=== PATIENT | male | born 1985 | race African-American/Black ===

== ENCOUNTER 2022-04-22 08:34 | Emergency (ER) | payer OTHER ==
[2022-04-22 08:59] VITALS: BP 134/75; PULSE 73; RESP 18; TEMP 98.1; BMI 22.9
== END 2022-04-22 10:00 | disposition home or self-care (01) ==
LOC: JER 08:34 → JERFT 08:34
DX: S62.102A Fracture of unspecified carpal bone, left wrist, initial encounter for closed fracture (principal)
CPT/HCPCS: 73110-TC-LT-FY; 73130-TC-LT-FY; 99284-25